=== PATIENT | male | born 1975 | race Caucasian/White ===

== ENCOUNTER 2021-09-10 14:31 | Emergency (ER) | payer MEDICAID, SELFPAY ==
[~2021-09-10] VITALS: Ht 165.1 cm; Wt 63.5 kg
[2021-09-10 14:57] VITALS: BP_SYST 151
[2021-09-10] MEDS ORDERED: MORPHINE 4 MG INJ. 4 MG/ML VIAL IM ONE (16:45)
[2021-09-10 17:39] LABS: CALCIUM 9.2 mg/dL (8.4-11.0); CREATININE 0.65 mg/dL (0.55-1.30); POTASSIUM 3.5 mmol/L (3.5-5.1)
[2021-09-10 17:51] LABS: ALBUMIN 3.8 g/dL (3.4-4.8); TOTAL BILIRUBIN 0.6 mg/dL (0.0-1.0)
[2021-09-10 18:07] LABS: BASOPHILS % (AUTO) 0.4 % (0.0-2.0); EOSINOPHILS # (AUTO) 0.2 K/uL (0.0-0.4); EOSINOPHILS % (AUTO) 1.9 % (0.0-4.0); HEMATOCRIT 48.5 % (36-54); HEMOGLOBIN 16.6 g/dL (14.0-18.0); LYMPHOCYTES # (AUTO) 2.4 K/uL (1.0-5.5); LYMPHOCYTES % (AUTO) 25.3 % (20.5-51.5); MEAN CORPUSCULAR HEMOGLOBIN 29 pg (27-31); MEAN CORPUSCULAR HGB CONC 34 % (32-36); MEAN CORPUSCULAR VOLUME 83 fL (79.0-98.0); MONOCYTES # (AUTO) 0.7 K/uL (0.0-1.0); MONOCYTES % (AUTO) 7.7 % (1.7-9.3); NEUTROPHILS # (AUTO) 6.1 K/uL (1.8-7.7); NEUTROPHILS % (AUTO) 64.7 % (40.0-70.0); PLATELET COUNT (AUTO) 300 K/uL (130-430); RED BLOOD CELL COUNT(AUTO) 5.82 MIL/uL (4.2-6.2); RED CELL DISTRIBUTION WIDTH 11.9 % (9.0-15.0); WHITE BLOOD COUNT (AUTO) 9.5 K/uL (4.8-10.8)
[2021-09-10 19:08] LABS: ERYTHROCYTE SEDIMENTATION RATE 4 MM/HR (0-15)
[2021-09-10] MEDS ORDERED: HYDROcodone/ACETAMIN 5-325 MG TAB (NORCO/ VICODIN) PO ONE (19:30)
[2021-09-10] MEDS ORDERED: HYDR-3917 PO (19:37)
[2021-09-10] MEDS ORDERED: IBUP-1969 PO (19:37)
[2021-09-10 19:54] VITALS: BP_SYST 147
== END 2021-09-10 20:25 | disposition home or self-care (01) ==
LOC: SED 14:31
DX: M79.18 Myalgia, other site (principal); Z20.822 Contact with and (suspected) exposure to COVID-19
CPT/HCPCS: 36415; 71045; 80053; 82550; 84484; 85025; 85379; 85651; 87426; 93005; 96372; 99285; J2270